=== PATIENT | male | born 1970 | race American Indian/Alaskan Native ===

== ENCOUNTER 2017-08-10 20:19 | Emergency (ER) | payer MEDICARE, MEDICAID ==
--- NOTE | 2017-08-10 20:49 | ED PDOC ---
Arrival/HPI - General Chief Complaint: Alcohol Ingestion Time Seen by Provider: 08/10/17 20:21 Historian: Patient - History of Present Illness Narrative History of Present Illness (Text): you were treated in the ED today for admitted alcohol usage and unknown xanax 3- 4 tablets of unknown dosage for recreational purposes and otherwise without any clear head injury/neck pain/nausea/vomiting/headache/dizziness/difficulty breathing/chest pain/abdomen pain/numbness/tingling/loss of limb function/pain with urination. 08/10/17 21:02 Symptom Onset: Gradual Quality: Other (no pain) Activities at Onset: Rest Context: Sitting Past Medical History - Provider Review Nursing Documentation Reviewed: Yes - Travel History Have you recently traveled outside [place] w/in the past 3 mons?: No - Cardiac Hx Cardiac Disorders: Yes Hx Hypertension: Yes - Pulmonary Hx Respiratory Disorders: No - Neurological Hx Neurological Disorder: No - HEENT Hx HEENT Disorder: No - Renal Hx Renal Disorder: No - Endocrine/Metabolic Hx Endocrine Disorders: No - Hematological/Oncological Hx Blood Disorders: Yes - Integumentary Hx Dermatological Disorder: No - Musculoskeletal/Rheumatological Hx Musculoskeletal Disorders: No - Gastrointestinal Hx Gastrointestinal Disorders: No - Genitourinary/Gynecological Hx Genitourinary Disorders: No - Psychiatric Hx Psychophysiologic Disorder: No Hx Substance Use: Yes - Anesthesia Hx Anesthesia: No Family/Social History - Physician Review Nursing Documentation Reviewed: Yes Family/Social History: No Known Family HX Smoking Status: Heavy Smoker > 10 Cigarettes Daily Hx Alcohol Use: Yes Frequency of alcohol use: Daily Hx Substance Use: Yes Substance used: Marijuana Allergies/Home Meds Allergies/Adverse Reactions: Allergies No Known Allergies Allergy (Verified 08/10/17 20:26) Home Medications: Home Meds Medication Instructions Recorded Confirmed Unobtainable 08/10/17 08/10/17 Review of Systems - Review of Systems Constitutional: Normal Eyes: Normal ENT: Normal Respiratory: Normal Cardiovascular: Normal Gastrointestinal: Normal Genitourinary Male: Normal Musculoskeletal: Normal Skin: Normal Neurological: Normal Endocrine: Normal Hemo/Lymphatic: Normal Psychiatric: Normal Physical Exam Vital Signs Reviewed: Yes Vital Signs Temp Pulse Resp BP Pulse Ox 08/11/17 04:07 98 F 97 H 18 122/79 97 08/11/17 00:10 96 H 17 126/80 99 08/10/17 20:26 98.5 F 100 H 18 133/89 92 L Temperature: Afebrile Blood Pressure: Hypertensive Pulse: Regular Respiratory Rate: Normal Appearance: Positive for: Well-Appearing, Non-Toxic, Comfortable Pain Distress: None Mental Status: Positive for: other (drowsy) - Systems Exam Head: Present: Atraumatic, Normocephalic Pupils: Present: PERRL Extroacular Muscles: Present: EOMI Conjunctiva: Present: Normal Ears: Present: Normal Mouth: Present: Moist Mucous Membranes Pharnyx: Present: Normal Nose (External): Present: Atraumatic Nose (Internal): Present: Normal Inspection Neck: Present: Normal Range of Motion, Other (no c-t-l spinal or paraspinal tenderness) Respiratory/Chest: Present: Clear to Auscultation, Good Air Exchange Abdomen: No: Tenderness, Distention, Normal Bowel Sounds, Peritoneal Signs, Rebound, Guarding, McBurney's Point Tender, Rovsing's Sign Present, Hernias, Feeding Tubes, Ostomy Tubes, Mass/Organomegaly, Scars, Other Back: Present: Normal Inspection Upper Extremity: Present: Normal Inspection Lower Extremity: Present: Normal Inspection Neurological: Present: GCS=15, CN II-XII Intact, Speech Normal, Motor Func Grossly Intact Skin: Present: Warm, Normal Color Psychiatric: Present: Alert, Oriented x 3, Normal Insight, Normal Concentration Medical Decision Making ED Course and Treatment: you were treated in the ED today for hx of HIV and on medications, anxiety, admitted alcohol usage and xanax 3-4 tablets of unknown dosage which after you sobered up was able to be informed that you took 2mg x2 tablets of clonapin and 2mg x2 tablets xanax for recreational purposes and accidentally mixed with alcohol and otherwise without any clear head injury/neck pain/nausea/vomiting/ headache/dizziness/difficulty breathing/chest pain/abdomen pain/numbness/ tingling/loss of limb function/pain with urination. You were otherwise breathing easily, pink moist lips, good strength/sensation, walked into the ED, then noted to be initially drowsy and on re-evaluation awake/alert/oriented/ walking easily, clear lungs, no abdomen tenderness, no fever temp 98.5, stable heart rate 100, stable breathing rate 18, stable oxygen level 92% room air, elevated blood pressure 133/89 which we recommend repeat in 2-3 days primary care office to determine further treatment, you have blood tests no infection count 8, stable blood level hemoglobin 12/platelets 232, stable chemistry, heart blood test negative less than 0.01, alcohol level 77, aspirin negative, tylenol negative, urine test no acute sign of infection ie nitrite/leukocyte negative, urine drug test positive cocaine/benzodiazapines, radiology chest xray initial no acute, ECG normal sinus rhythm, saline hydration, observation done in the ED with improvement as awake/alert/oriented/walking easily/sober, you clearly stated no thoughts to harm yourself or others or hallucinations, counselled to stop drinking alcohol and thus discharged home with safe ride. 1. Recommend follow-up primary care 1-2 days to review symptoms, referral to detoxification unit to stop using alcohol and drugs, referral to urology for trace ketones/protein to ensure further care. 4. If any worsening pain, fever, chills, nausea, vomiting, difficulty breathing, numbness, loss of limb function , pain with urination or any medical condition then return to the ED. 08/10/17 21:[address] without contrast: IMPRESSION: No acute intracranial abnormality Dictated and Authenticated by: Nickie Purdy MD 08/10/17 21:48 CT Cervical Spine Without Intravenous Contrast: IMPRESSION: Degenerative change, no fracture. Dictated and Authenticated by: Nickie Purdy MD 08/10/17 21:54 Chest X-ray shows no acute process. Interpreted by me. 08/10/17 23:06 Discussed with Poison Control about the Xanax and alcohol usage without knowing the dosage of the 3-4 Xanax. Patient airway is being maintained easily. Will be kept here until he is at a sober status. 08/10/17 23:50 08/11/17 00:01 patient arousable, talking. 08/11/17 06:09 08/11/17 06:11 08/11/17 06:17 Reassessment Condition: Re-examined, Improved - Lab Interpretations Lab Results: 08/10/17 21:14 08/10/17 21:14 Lab Results 08/10/17 21:14: Alcohol, Quantitative 77 H 08/10/17 21:14: Salicylates < 1 L, Acetaminophen < 10.0 L 08/10/17 21:14: Urine Opiates Screen Negative, Urine Methadone Screen Negative, Ur Barbiturates Screen Negative, Ur Phencyclidine Scrn Negative, Ur Amphetamines Screen Negative, U Benzodiazepines Scrn Positive H, U Oth Cocaine Metabols Positive H, U Cannabinoids Screen Negative 08/10/17 21:14: PT 10.0, INR 0.88 L, APTT 26.6 08/10/17 21:14: Sodium 144, Potassium 4.0, Chloride 108 H, Carbon Dioxide 23, Anion Gap 18, BUN 22 H, Creatinine 1.1, Est GFR ( Amer) > 60, Est GFR ( Non-Af Amer) > 60, Random Glucose 98, Calcium 8.8, Magnesium 1.9, Total Bilirubin 0.2, AST 43, ALT 42, Alkaline Phosphatase 72, Lactate Dehydrogenase 438, Total Creatine Kinase 359 H, CK-MB (CK-2) 2.0, CK-MB (CK-2) % Cancelled, Troponin I < 0.01, Total Protein 7.1, Albumin 4.1, Globulin 3.0, Albumin/ Globulin Ratio 1.4 08/10/17 21:14: Urine Color Yellow, Urine Appearance Clear, Urine pH 5.5, Ur Specific [place] >= 1.030, Urine Protein Trace H, Urine Glucose (UA) Negative, Urine Ketones Trace H, Urine Blood Negative, Urine Nitrate Negative, Urine Bilirubin Negative, Urine Urobilinogen 0.2, Ur Leukocyte Esterase Negative, Urine RBC 0 - 2, Urine WBC 0 - 2, Ur Epithelial Cells None, Urine Bacteria None 08/10/17 21:14: WBC 8.0, RBC 3.99, Hgb 12.8 L, Hct 37.9 L, MCV 95.0, MCH 32.1, MCHC 33.8, RDW 14.3, Plt Count 232, MPV 10.0, Gran % 53.3, Lymph % (Auto) 35.8 H , [place] % (Auto) 7.5 H, Eos % (Auto) 2.7, Baso % (Auto) 0.7, Gran # 4.27, Lymph # (Auto) 2.9, [place] # (Auto) 0.6, Eos # (Auto) 0.2, Baso # (Auto) 0.06 I have reviewed the lab results: Yes - RAD Interpretation Radiology Orders: 08/10/17 20:44 CHEST PORTABLE [RAD] Stat 08/10/17 21:01 CERVICAL SPINE W/O CONTRAST [CT] Stat HEAD W/O CONTRAST [CT] Stat Fsr: ED Physician (CXR no acute.), Radiologist - EKG Interpretation Interpreted by ED Physician: Yes (NSR, Qt 334/Qtc 428) Type: 12 lead EKG - Medication Orders Current Medication Orders: Discontinued Medications Sodium Chloride (Sodium Chloride 0.9%) 1,000 mls @ 999 mls/hr IV .[id number] STA Stop: 08/10/17 23:33 Last Admin: 08/10/17 21:15 Dose: 999 mls/hr eMAR Start Stop Document 08/10/17 21:15 RD (Rec: 08/10/17 22:47 RD [id number]) Intravenous Solution Start Date 08/10/17 Start Time 21:15 End Date 08/10/17 End time 22:15 Total Infusion Time 60 - Scribe Statement The provider has reviewed the documentation as recorded by the Scribe Norbert Moise Provider Scribe Attestation: All medical record entries made by the Scribe were at my direction and personally dictated by me. I have reviewed the chart and agree that the record accurately reflects my personal performance of the history, physical exam, medical decision making, and the department course for this patient. I have also personally directed, reviewed, and agree with the discharge instructions and disposition. Disposition/Present on Arrival - Present on Arrival Any Indicators Present on Arrival: No History of DVT/PE: No History of Uncontrolled Diabetes: No Urinary Catheter: No History of Decub. Ulcer: No History Surgical Site Infection Following: None - Disposition Have Diagnosis and Disposition been Completed?: Yes Diagnosis: Benzodiazepine abuse, Alcohol use disorder Disposition: HOME/ ROUTINE Disposition Time: 06:19 Patient Plan: Discharge Condition: IMPROVED Discharge Instructions (ExitCare): Drug Abuse and Drug Addiction (DC) Additional Instructions: you were treated in the ED today for hx of HIV and on medications, anxiety, admitted alcohol usage and xanax 3-4 tablets of unknown dosage which after you sobered up was able to be informed that you took 2mg x2 tablets of clonapin and 2mg x2 tablets xanax for recreational purposes and accidentally mixed with alcohol and otherwise without any clear head injury/neck pain/nausea/vomiting/ headache/dizziness/difficulty breathing/chest pain/abdomen pain/numbness/ tingling/loss of limb function/pain with urination. You were otherwise breathing easily, pink moist lips, good strength/sensation, walked into the ED, then noted to be initially drowsy and on re-evaluation awake/alert/oriented/ walking easily, clear lungs, no abdomen tenderness, no fever temp 98.5, stable heart rate 100, stable breathing rate 18, stable oxygen level 92% room air, elevated blood pressure 133/89 which we recommend repeat in 2-3 days primary care office to determine further treatment, you have blood tests no infection count 8, stable blood level hemoglobin 12/platelets 232, stable chemistry, heart blood test negative less than 0.01, alcohol level 77, aspirin negative, tylenol negative, urine test no acute sign of infection ie nitrite/leukocyte negative, urine drug test positive cocaine/benzodiazapines, radiology chest xray initial no acute, ECG normal sinus rhythm, saline hydration, observation done in the ED with improvement as awake/alert/oriented/walking easily/sober, you clearly stated no thoughts to harm yourself or others or hallucinations, counselled to stop drinking alcohol and thus discharged home with safe ride. 1. Recommend follow-up primary care 1-2 days to review symptoms, referral to detoxification unit to stop using alcohol and drugs, referral to urology for trace ketones/protein to ensure further care. 4. If any worsening pain, fever, chills, nausea, vomiting, difficulty breathing, numbness, loss of limb function , pain with urination or any medical condition then return to the ED. Forms: [employer] (Tunisian)
[2017-08-10 21:23] LABS: PH,URINE 5.5 (4.7-8.0); URINE BILIRUBIN NEGATIVE (NEGATIVE); URINE BLOOD NEGATIVE (NEGATIVE); URINE GLUCOSE (UA) NEGATIVE (NEGATIVE); URINE LEUKOCYTE ESTERASE NEGATIVE Leu/uL (NEGATIVE); URINE PROTEIN TRACE mg/dL (<30 mg/dL); URINE UROBILINOGEN 0.2 E.U./dL (<1 E.U./dL)
[2017-08-10 21:26] LABS: URINE APPEARANCE CLEAR (CLEAR); URINE COLOR YELLOW (YELLOW)
[2017-08-10 21:32] LABS: BASO # 0.06 K/mm3 (0.0-2.0); BASO % 0.7 % (0.0-3.0); EOS # 0.2 (0.0-0.7); EOS % 2.7 % (1.5-5.0); GRAN # 4.27 (1.4-6.5); GRAN % 53.3 % (50.0-68.0); HEMOGLOBIN 12.8 g/dL (14.0-18.0); LYMPH # 2.9 (1.2-3.4); LYMPH % 35.8 % (22.0-35.0); MEAN CORPUSCULAR HEMOGLOBIN 32.1 pg (25.0-35.0); MEAN CORPUSCULAR HGB CONC 33.8 g/dl (31.0-37.0); MONO # 0.6 (0.1-0.6); MONO % 7.5 % (1.0-6.0); RBC 3.99 10^6/uL (3.5-6.1); RED CELL DISTRIBUTION WIDTH 14.3 % (11.5-14.5)
[2017-08-10 21:33] LABS: INR 0.88 (0.93-1.08); PARTIAL THROMBOPLASTIN TIME 26.6 Seconds (25.1-36.5)
[2017-08-10 21:34] LABS: ACETAMINOPHEN < 10.0 ug/ml (10.0-20.0); SALICYLATE < 1 mg/dL (2.0-20.0)
[2017-08-10 21:42] LABS: URINE RBC 0 - 2 /hpf (0-2); URINE WBC 0 - 2 /hpf (0-6)
--- NOTE | 2017-08-10 21:43 | CT ---
EXAM: CT Head Without Intravenous Contrast EXAM DATE/TIME: 08/10/2017 9:01 PM CLINICAL HISTORY: 47 years old, male; Injury or trauma; Injury Unclear head injury; Initial encounter; Blunt trauma (contusions or hematomas); Consciousness not specified; Additional info: 47yom, ETOH intoxication, unclear head injury TECHNIQUE: Axial computed tomography images of the head/brain without intravenous contrast. All CT scans at this facility use one or more dose reduction techniques, viz.: automated exposure control; ma/kV adjustment per patient size (including targeted exams where dose is matched to indication; i.e. head); or iterative reconstruction technique. Coronal and sagittal reformatted images were created and reviewed. COMPARISON: There are no prior studies for comparison. FINDINGS: Brain and ventricles: Ventricles are normal in size and configuration. There is no midline shift. There are no intra-axial or extra-axial mass lesions or areas of hemorrhage. There are no abnormal fluid collections. Lucio-white differentiation is maintained. Bones: Cranial vault is intact. Soft tissues: unremarkable Sinuses: There is no acute sinusitis. There is a small retention cyst/polyp in the left maxillary sinus Ears and mastoids: Middle ears and mastoids are unremarkable Orbits: Orbital contents are unremarkable. IMPRESSION: No acute intracranial abnormality
--- NOTE | 2017-08-10 21:46 | CT ---
EXAM: CT Cervical Spine Without Intravenous Contrast EXAM DATE/TIME: 08/10/2017 9:01 PM CLINICAL HISTORY: 47 years old, male; Injury or trauma; Injury Unclear head injury; Initial encounter; Blunt trauma; Additional info: 47yom, ETOH intoxication, unclear head injury TECHNIQUE: Axial computed tomography images of the cervical spine without intravenous contrast. All CT scans at this facility use one or more dose reduction techniques, viz.: automated exposure control; ma/kV adjustment per patient size (including targeted exams where dose is matched to indication; i.e. head); or iterative reconstruction technique. Coronal and sagittal reformatted images were created and reviewed. COMPARISON: There are no prior studies for comparison. FINDINGS: Artifacts: Streak artifact degrades image quality.Motion artifact degrades image quality. Vertebrae: There is straightening of the cervical lordosis. There is no prevertebral soft tissue swelling. There are no fractures. There is multilevel degenerative change. There is disc space narrowing at all levels. Degenerative changes are greatest C3-C4, C4-C5 and C6-C7. There are degenerative osteophytes at multiple levels. Facet joints align anatomically. There is mild facet joint narrowing at multiple levels. Spinous processes align in the expected fashion. Bone mineralization is normal. Discs/spinal canal/neural foramina: See above. Soft tissues: See above. Lung apices: There are atelectatic changes at the lung apices.Thyroid is not optimally demonstrated. IMPRESSION: Degenerative change, no fracture
[2017-08-10 22:13] LABS: ALB/GLOB RATIO 1.4 (1.1-1.8); ALBUMIN 4.1 g/dL (3.0-4.8); ALT/SGPT 42 U/L (7-56); AST/SGOT 43 U/L (17-59); BLOOD UREA NITROGEN 22 mg/dL (7-21); CALCIUM 8.8 mg/dL (8.4-10.5); GFR AFRICAN-AMERICAN > 60; GFR NON-AFRICAN AMERICAN > 60
[2017-08-10 22:20] LABS: TROPONIN I < 0.01 ng/mL
[2017-08-10] MEDS ORDERED: Sodium Chloride 0.9% 1,000 ML IV STA (22:33)
[2017-08-10 23:03] LABS: BARBITURATES, UR NEGATIVE (NEGATIVE); BENZODIAZEPINES, UR POSITIVE (NEGATIVE)
[2017-08-10 23:04] LABS: OPIATES, UR NEGATIVE (NEGATIVE); PHENCYCLIDINE, UR NEGATIVE (NEGATIVE)
[2017-08-11 05:13] VITALS: TEMP 98
[2017-08-11 06:29] VITALS: BP 130/80; PULSE 90; RESP 17; O2SAT 99
--- NOTE | 2017-08-11 07:26 | RAD ---
HISTORY: 47yoM, etoh COMPARISON: No prior. FINDINGS: LUNGS: No active pulmonary disease. PLEURA: No significant pleural effusion identified, no pneumothorax apparent. CARDIOVASCULAR: Normal. OSSEOUS STRUCTURES: No significant abnormalities. VISUALIZED UPPER ABDOMEN: Normal. OTHER FINDINGS: None. IMPRESSION: No active disease.
--- NOTE | 2017-08-11 13:01 | CARD ---
APPROVED REPORT EKG Measurement Heart [id number] <Conclusion> Normal sinus rhythm Normal ECG
== END 2017-08-11 06:27 | disposition home or self-care (01) ==
LOC: ED 20:19
DX: F13.10 Sedative, hypnotic or anxiolytic abuse, uncomplicated (principal); F10.10 Alcohol abuse, uncomplicated; Y90.3 Blood alcohol level of 60-79 mg/100 ml; I10 Essential (primary) hypertension; F17.210 Nicotine dependence, cigarettes, uncomplicated
CPT/HCPCS: 70450; 71045; 72125; 80053; 81001; 82550; 82553; 82948; 83615; 83735; 84484; 85025; 85610; 85730; 87086; 93005; 96360; 99284; G0480; J7030